=== PATIENT | female | born 1960 | race Caucasian/White ===

== ENCOUNTER 2017-04-26 09:22 | Emergency (ER) | payer BC ==
[2017-04-26 09:35] VITALS: BP 140/80
[2017-04-26] MEDS ORDERED: Ciprofloxacin TAB* 500 MG PO ONE (09:52)
[2017-04-26] MEDS ORDERED: metroNIDAZOLE TAB* 250 MG PO ONE (09:53)
--- NOTE | 2017-04-26 09:53 | UC ---
Abdominal Pain Female HPI - HPI Summary HPI Summary: 56 yo female with the onset of LLQ abd pain which started about 3 days ago She has been plagued with recurrent bouts of diverticulitis for the past 15 yrs had a partial colectomy 2012 no f/c no n/v/d has pain with movement no pain if sitting no UTI symptoms - History of Current Complaint Chief Complaint: UCGI Stated Complaint: ABD PAIN Time Seen by Provider: 04/26/17 09:44 Hx Obtained From: Patient Onset/Duration: Gradual Onset, Lasting Days Timing: Constant Severity Initially: Mild Severity Currently: Mild Pain Intensity: 0 - moderate with movement Pain Scale Used: 0-10 Numeric Location: Discrete At: RLQ Radiates: Yes Radiates to: Other - left upper quad Character: Colicy Aggravating Factor(s): Movement Alleviating Factor(s): Other: - rest Associated Signs and Symptoms: Positive: Negative Allergies/Adverse Reactions: Allergies Allergy/AdvReac Type Severity Reaction Status Date / Time Sulfa Drugs Allergy Intermediate Hives Verified 04/26/17 09:35 Home Medications: Home Medications Amlodipine Besylate [Norvasc 5 mg tab] 5 mg PO DAILY 04/26/17 [History Confirmed 04/26/17] Aspirin [Aspirin 81 MG TAB] 81 mg PO DAILY WITH MEAL 04/26/17 [History Confirmed 04/26/17] Omeprazole 40 mg PO DAILY WITH MEAL 04/26/17 [History Confirmed 04/26/17] Rosuvastatin Calcium [Crestor] 10 mg PO DAILY WITH MEAL 04/26/17 [History Confirmed 04/26/17] PMH/Surg Hx/FS Hx/Imm Hx Previously Healthy: Yes Endocrine History: Dyslipidemia Cardiovascular History: Hypertension - Surgical History Surgical History: Yes Surgery Procedure, Year, and Place: 1985, 1988 - [place], [place]. 1989 C- SECTION- [place]. 1991 - [place]. 1993 [facility]IAN CYST- [facility]. 1995 [place]LECTOMY- [place]. 2004 [place]OMY- [place] - Family History Known Family History: Positive: Hypertension, Other - strong FHx diverticulitis/ FHx colon Ca - Social History Alcohol Use: Daily Substance Use Type: None Smoking Status (MU): Former Smoker Review of Systems Constitutional: Negative Skin: Negative Eyes: Negative ENT: Negative Respiratory: Negative Cardiovascular: Negative Gastrointestinal: Abdominal Pain Genitourinary: Negative Motor: Negative Neurovascular: Negative Musculoskeletal: Negative Neurological: Negative Psychological: Negative Is Patient Immunocompromised?: No All Other Systems Reviewed And Are Negative: Yes Physical Exam Triage Information Reviewed: Yes Appearance: Well-Appearing, No Pain Distress, Well-Nourished Vital Signs: Initial Vital Signs Temp 96.9 F 04/26/17 09:26 Pulse 88 04/26/17 09:26 Resp 18 04/26/17 09:26 BP 140/80 04/26/17 09:26 Pulse Ox 100 04/26/17 09:26 Vital Signs Reviewed: Yes ENT: Positive: Hearing grossly normal, Pharynx normal, Pharyngeal erythema Neck: Positive: Supple, Nontender, No Lymphadenopathy Respiratory: Positive: Lungs clear, Normal breath sounds, No respiratory distress, No accessory muscle use Cardiovascular: Positive: RRR, No Murmur Abdomen Description: Negative: Nontender - LLQ abdominal pain Musculoskeletal: Positive: ROM Intact, No Edema Neurological: Positive: Alert Psychological Exam: Normal Skin Exam: Normal Abd Pain Female Course/Dx - Differential Dx/Diagnosis Provider Diagnoses: diverticulitis Discharge - Discharge Plan Condition: Stable Disposition: HOME Prescriptions: Ciprofloxacin TAB* [Cipro 750 MG Tab*] 750 mg PO BID #14 tab Metronidazole [Flagyl 500 MG TAB] 500 mg PO QID #28 tab Patient Education Materials: Diverticulitis (ED) Referrals: Veronika Cooney [Primary Care Provider] - As Soon As Possible Additional Instructions: recheck YELENA for worsening pain/fever/vomiting recheck with your provider first available appt
[2017-04-26] MEDS ORDERED: Ciprofloxacin TAB* 250 MG PO ONE (10:00)
== END 2017-04-26 10:15 | disposition home or self-care (01) ==
LOC: UCEAST 09:22
DX: K57.92 Diverticulitis of intestine, part unspecified, without perforation or abscess without bleeding (principal); I10 Essential (primary) hypertension; E78.5 Hyperlipidemia, unspecified; Z87.891 Personal history of nicotine dependence
CPT/HCPCS: 99212; A9270-GY; G0463

== ENCOUNTER → 2017-05-27 09:15 | Day surgery (SDC) | payer BC ==
--- NOTE | 2017-05-23 19:48 | HP ---
CC: Veronika Cooney NP * HISTORY AND PHYSICAL: DATE OF PLANNED ADMISSION/SURGERY: 05/27/17 HISTORY OF PRESENT ILLNESS: Mrs. Estrada is a 56-year-old white female who is admitted with a suspicious lesion in the right renal pelvis for cystoscopy, right ureteroscopy, biopsy and right ureteral stent placement. Mrs. Estrada is a known stone former and had required treatment of left renal calculus about 4 years ago. At that time, she underwent shockwave lithotripsy of 1 cm left renal calculus. She has done well and has been followed periodically with renal ultrasounds. Her ultrasound last year showed a small stone in the left kidney. It was asymptomatic. About 3 months ago, the patient noted an episode of gross hematuria. It was asymptomatic. She had a renal ultrasound, which showed that the left renal calculus is not visualized anymore and it was felt that the episode was secondary to the recent passage of the left renal calculus. She had another episode of painless gross hematuria last month. She was worked up with a cystoscopy which was negative. Renal ultrasound was normal. She then had a CT urogram which showed a 2 cm filling defect in the right renal pelvis suspicious for transitional cell carcinoma. Because of that finding, the patient is admitted for the above procedure. PAST MEDICAL HISTORY AND SYSTEM REVIEW: The patient gives past history of diverticulitis and diverticulosis and had undergone a resection of the descending colon 4 years ago. She recently had a bout of left lower quadrant pain, which was felt to be recurrence of the diverticulitis and she was started 1 week ago on treatment with Cipro and Flagyl. The patient gives past history of smoking. She is otherwise in good health. She has hyperlipidemia, on rosuvastatin 10 mg daily. She is on omeprazole 40 mg for GERD. She is hypertensive, controlled on Norvasc 10 mg daily. She is also on fish oil and vitamins. She reports being allergic to SULFA which gives her hives. She denies any cardiac or pulmonary diseases or symptoms. PHYSICAL EXAMINATION GENERAL: Moderately overweight, otherwise healthy looking white female. VITAL SIGNS: Blood pressure 130/80, pulse of 80. HEART: Regular and rhythmic. No murmurs. LUNGS: Clear. ABDOMEN: She has no CVA tenderness. There is moderate tenderness in the left lower quadrant consistent with the clinical diagnosis of diverticulitis. IMPRESSION: 1. Past history of renal calculus disease with a residual small calculus in the lower pole calyx of the left kidney. 2. Episodes of gross hematuria with a negative cystoscopy, and a suspicious filling defect in the right renal pelvis likely representing transitional cell carcinoma. 3. History of diverticulosis and recent episode of diverticulitis, on treatment. PLAN: Cystoscopy, right retrograde pyelography and washings, and right ureteroscopy and biopsy with placement of a right ureteral stent. If the right renal pelvis cannot be reached with the ureteroscope, the patient might require a second procedure following the stent placement. I discussed the above plans in detail with the patient. All her questions were answered. [id number]/[facility] #: [id number]
[~2017-05-27 09:15] MED LIST: Acetaminophen TAB* 325 MG PO PRN; Buffered Lidocaine 0.9% SYRIN* 5 ML/SYR SYRINGE INTRADERM ONE; Dexamethasone IV* 4 MG/ML 1 ML (4 MG) ONE; DiMENhydriNATE IV* 50 MG/ML VIAL IV PUSH PRN; DiMENhydriNATE IV* 50 MG/ML VIAL ONE; Famotidine IV* 10 MG/ML 2 ML (20 mg) IV ONE; Famotidine IV* 10 MG/ML 2 ML (20 mg) ONE; HYDROmorphone INJ* 1 MG/ML CARPUJECT SYRINGE IV PRN; Iohexol 180 (CONTRAST) 10 ML SDV IV ONE; Ketorolac INJ* 30 MG/ML 1 ML VIAL ONE; Lidocaine 2% PF * 5 ML VIAL ONE; Midazolam* 1 MG/ML 2 ML VIAL (2 MG) ONE; Naloxone* 0.4 MG/ML 1 ML VIAL IV PRN; Ondansetron INJ* 2 MG/ML VIAL ONE; Propofol* 10 MG/ML 20 ML BTL IV PUSH ONE; cefTRIAXone(*) 2 GM ADDV.VIAL IVPB ONE; fentaNYL* 50 MCG/ML 2 ML VIAL (100 MCG VIAL) ONE; oxyCODONE TAB* 5 MG TAB PO PRN
--- NOTE | 2017-05-27 10:31 | RAD ---
INDICATION: Right ureteral stent insertion COMPARISON: CT urogram May 19, 2017 FINDINGS: 17 seconds of fluoroscopy were provided for the urology department. Fluoroscopic spot imaging of the abdomen were obtained for operative control and show placement of a right ureteral stent in expected position. There is filling defect in the renal pelvis better identified on the earlier CT. CPT II Codes: 6045F (fluoro time doc)
[2017-05-27 11:57] VITALS: BP 163/93
--- NOTE | 2017-05-27 22:38 | OP ---
CC: Veronika Cooney NP OPERATIVE REPORT: DATE OF OPERATION: 05/27/17 DATE OF : 60 SURGEON: Dominick Ocasio MD ANESTHESIOLOGIST: Dr. Moody. ANESTHESIA: General. 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 POST-OP DIAGNOSIS: Tumor of right renal pelvis. OPERATIVE PROCEDURES: 1. Cystoscopy. 2. Right retrograde pyelography and washings from right renal pelvis. 3. Right ureteroscopy and pyeloscopy. 4. Biopsies of tumors of right renal pelvis. 5. Placement of right urethral stent (7-Senegalese). INDICATIONS FOR PROCEDURE: Mrs. Estrada is a 56-year-old white female who is a smoker and who I have been following because of renal calculus disease. She has a very small residual left renal calculus. She was worked up because of recurrent episodes of painless gross hematuria. Cystoscopy was negative. CT urogram showed a 2 cm filling defect in the right renal pelvis. Urine cytology was negative. Because of that finding, the patient is brought in for the above procedure. PATHOLOGY AT CYSTOSCOPY: The bladder mucosa looked normal. There were no suspicious bladder lesions seen. She had a single orifice on each side and the orifices looked normal. Upon right retrograde pyelography, there was a filling defect with the goblet sign in the renal pelvi s. Upon right ureteroscopy, the ureteral wall looked normal and there were no suspicious lesions seen. 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 The larger tumor measured 2 cm and the smaller one measured just under 1 cm. DESCRIPTION OF PROCEDURE: After successful general anesthesia, the patient was placed in the lithoto my position and was prepped and draped for a cystoscopy. Cystoscopy was performed. The bladder was c arefully inspected and the above findings were noted. A flexible tip guidewire was then introduced into the right orifice. A size 5- [place]e open-ended cat heter was fed on top of the guidewire and positioned in the distal right ureter. Right retrograde py elography was performed demonstrating the whole ureter and the renal pelvis and collecting system and demonstrating the filling defect in the renal pelvis. The guidewire was then reintroduced and positioned in the area of the renal pelvis. A size 6.5 Seneg[place]e tapered semi-rigid ureteroscope was introduced inside the bladder. The flexible ti p basket was introduced through the port of the ureteroscope and the flexible tip was passed inside t he renal pelvis along side the guidewire. That allowed the atraumatic introduction of the ureterosco pe into the ureter. The whole ureteral wall was inspected. It yielded easily to the urethroscope wi thout having to do any dilation. The renal pelvis was then entered and the pathology noted namely th e 2 tumors. Using the basket, the tumors were biopsied and sent for pathology. Washings were also obtained from the right renal pelvis and sent for cytologies. The cystoscope was reintroduced inside the bladder. Retrograde pyelography was performed showing no extravasation from the renal pelvis. A size 7-Senegalese stent was then placed with the proximal end coi ling in the renal pelvis and the distal end coiling inside the bladder. There was bloody efflux seen from the right orifice and through the stent. A size 18-Senegalese Rodrigues catheter was then placed inside the bladder. The patient tolerated the procedure well and left the operating room in good condition. There was mi nimal blood loss. The specimens were washings from right renal pelvis and biopsies of tumors of righ t renal pelvis. [id number]/[facility] #: [id number]
== END | disposition home or self-care (01) ==
LOC: OR 09:15
PROVIDERS: ATTEND Urology
DX: C65.1 Malignant neoplasm of right renal pelvis (principal); R31.0 Gross hematuria; Z87.891 Personal history of nicotine dependence; E78.5 Hyperlipidemia, unspecified; I10 Essential (primary) hypertension; K57.92 Diverticulitis of intestine, part unspecified, without perforation or abscess without bleeding
CPT/HCPCS: 74420; 88112; 88305; C1876; J0696; J1100; J1240; J1885; J2250; J2405; J2704; J3010